=== PATIENT | male | born 1965 | race Caucasian/White ===

== ENCOUNTER 2017-01-09 19:42 | Emergency (ER) | payer SELFPAY ==
[~2017-01-09] VITALS: Ht 172.7 cm; Wt 79.4 kg
[~2017-01-09 19:42] MED LIST: BPR100T PO; FAMO20TA13 PO; GEMF600T3 PO; HYDR-3720 PO; HYDR-757 PO; IBP800T PO; NAPR-243 PO; PNT40TEC PO; RIVA15TA PO; RIVA20TA2 PO; RNT150T; SULF-222 PO; TRM50T PO
[2017-01-09] MEDS ORDERED: Prilosec (20:13)
[2017-01-09] MEDS ORDERED: DICL50TA6 PO (20:15)
--- NOTE | 2017-01-09 20:16 | ED Lower Extremity ---
General Chief Complaint: Lower Extremity Stated Complaint: LT FOOT PAIN/SWELLING Nursing Triage Note: Pt reports spontaneous left foot pain after a pop sensation 1 week ago. Pain to bear weight on foot Nursing Sepsis Screen: No Definite Risk Source: patient Exam Limitations: no limitations History of Present Illness Time seen by provider: 20:12 Initial Comments To ER with pain just in front of the left heel for one week after a popping sensation in this area. Since then he's had pain with weightbearing that seems to be worse first thing in the morning and improves throughout the day. Onset: just prior to arrival Severity: moderate Pain/Injury Location: left foot Method of Injury: unknown Modifying Factors: Worse With Movement Allergies and Home Medications Allergies Coded Allergies: Penicillins (Unverified Allergy, Intermediate, hives, 09/18/12) Home Medications Hydrocodone Bit/Acetaminophen 1 Each Tablet, 1 EA PO Q6H PRN for MILD PAIN, #20 Prescribed by: MIROSLAVA GEORGE on 12/21/13 1321 Pantoprazole Sodium 40 Mg Tablet.dr, 1 TAB PO DAILY, #30 (Reported) Rivaroxaban 15 Mg Tablet, 15 MG PO BID, #28 Prescribed by: MIROSLAVA GEORGE on 12/21/13 1317 Rivaroxaban 20 Mg Tablet, 20 MG PO DAILY, #30 Prescribed by: MIROSLAVA GEORGE on 12/21/13 1317 Constitutional: see HPI, No chills, No fever EENTM: see HPI Respiratory: no symptoms reported Cardiovascular: no symptoms reported Genitourinary: no symptoms reported Musculoskeletal: see HPI Skin: no symptoms reported Psychiatric/Neurological: No Symptoms Reported Past Txotghu-Fxqujg-Gaxbwx Hx Patient Social History Alcohol Use: Occasionally Uses Recreational Drug Use: No (Hx THC) Smoking Status: Current Everyday Smoker Type Used: Cigarettes 2nd Hand Smoke Exposure: Yes Recent Foreign Travel: No Contact w/Someone Who Travel: No Recent Infectious Disease Expo: No Recent Hopitalizations: No Immunizations Up To Date Tetanus Booster (TDap): More than 5yrs Seasonal Allergies Seasonal Allergies: No Surgeries HX Surgeries: Yes Respiratory Hx Respiratory Disorders: No Cardiovascular Hx Cardiac Disorders: Yes Neurological Hx Neurological Disorders: No Genitourinary Hx Genitourinary Disorders: No Gastrointestinal Hx Gastrointestinal Disorders: Yes Gastrointestinal Disorders: Gastroesophageal Reflux Musculoskeletal Hx Musculoskeletal Disorders: No Endocrine Hx Endocrine Disorders: No HEENT HX ENT Disorders: No Cancer Hx Cancer: No Psychosocial Hx Psychiatric Problems: No Integumentary HX Skin/Integumentary Disorder: No Blood Transfusions Hx Blood Disorders: No Family Medical History Significant Family History: No Pertinent Family Hx Physical Exam Vital Signs Vital Sign - Last 12Hours 01/09/17 20:02 Temp 97.2 Pulse 91 Resp 20 B/P (MAP) 131/100 Pulse Ox 97 O2 Delivery Room Air Capillary Refill : Less Than 3 Seconds General Appearance: WD/WN, no apparent distress HEENT: PERRL/EOMI, normal ENT inspection Neck: non-tender, full range of motion Respiratory: no respiratory distress, no accessory muscle use Gastrointestinal: non tender, soft Hips: bilateral hip non-tender, bilateral hip normal inspection, bilateral hip normal range of motion Legs: bilateral leg non-tender, bilateral leg normal inspection, bilateral leg normal range of motion Knees: bilateral knee non-tender, bilateral knee normal inspection, bilateral knee normal range of motion Ankles: bilateral ankle non-tender, bilateral ankle normal inspection, bilateral ankle normal range of motion Feet: left foot pain, left foot soft tissue tenderness, left foot swelling, left foot other (tender to palpation to plantar fascia. no erythema or. ) Neurologic/Psychiatric: alert, normal mood/affect, oriented x 3 Skin: normal color, warm/dry Progress/Results/Core Measures Results/Orders My Orders Orders - MIROSLAVA GEORGE APRN Foot, Left, 3 Views (01/09/17 20:11) Vital Signs/I&O Vital Sign - Last 12Hours 01/09/17 20:02 Temp 97.2 Pulse 91 Resp 20 B/P (MAP) 131/100 Pulse Ox 97 O2 Delivery Room Air Blood Pressure Mean: 110 Departure Impression Impression: Primary Impression: Plantar fasciitis Disposition: 01 HOME, SELF-CARE Condition: Stable Departure-Patient Inst. Decision time for Depature: 20:14 Referrals: [facility] (PCP) Primary Care Physician KARY SHEPHERD (Family) Primary Care Physician Patient Instructions: Heel Pain (Caused by Plantar Fasciitis) (DC), Plantar Fasciitis Exercises Add. Discharge Instructions: 1. Return to ER for any concerns 2. Follow up with your doctor next week 3. pain meds as directed 4. Get heel inserts for the shoes. Follow the exercises as directed All discharge instructions reviewed with patient and/or family. Voiced understanding. Scripts Diclofenac Sodium (Diclofenac Sodium) 50 Mg Tablet. 50 MG PO TID Y for PAIN-MODERATE, #20 TAB Prov: MIROSLAVA GEORGE APRN 01/09/17 MIROSLAVA GEORGE APRN Jan 09, 2017 20:15
[2017-01-09 20:51] VITALS: BP 127/99
--- NOTE | 2017-01-09 21:08 | Diagnostic Imaging Report ---
INDICATION: Foot pain. EXAMINATION: Left foot at 8:30 p.m. Three views were obtained. COMPARISON: There are no prior studies available for comparison. FINDINGS: There is no fracture, dislocation or acute bony abnormality evident. There is an irregular bony excrescence along the anterior aspect of the talar neck. I suspect that this is a sequela of prior trauma. 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 A mild hallux valgus deformity of the first ray is noted as well. The soft tissues are unremarkable. IMPRESSION: There is no evidence for an acute bony abnormality. Dictated by: Dictated on workstation # [id number]
== END 2017-01-09 20:51 | disposition home or self-care (01) ==
LOC: EDUNIT# 19:42 → ER 19:44
DX: M72.2 Plantar fascial fibromatosis (principal); F17.210 Nicotine dependence, cigarettes, uncomplicated; Z79.01 Long term (current) use of anticoagulants
CPT/HCPCS: 73630; 99283

== ENCOUNTER 2017-01-16 00:30 | Inpatient (IN) | payer SELFPAY ==
[~2017-01-16] VITALS: Ht 172.7 cm; Wt 78.2 kg
[2017-01-16] VITALS (11 sets, daily range): BP systolic 104–134; BP diastolic 61–82
[~2017-01-16 00:30] MED LIST changes: +DICL50TA6 PO; +Prilosec
--- OUTSIDE RECORDS SUMMARY | 2017-01-16 00:41 | XMS REPORT | Continuity of Care Document ---
Author Author [facility] Organization [facility] Address Unknown Phone Unavailable Allergies Active Description Code Type Severity Reaction Onset Reported/Identified Relationship to Patient Clinical Status Yes Penicillins [id number] Drug Allergy Moderate hives 03/30/2010 Medications Problems Date Dx Coded Attending Type Code Diagnosis Diagnosed By 12/29/2008 836.1 TEAR OF LATERAL CARTILAGE OR MENISCUS OF KNEE CURRENT 12/29/2008 844.2 SPRAIN OF CRUCIATE LIGAMENT OF KNEE 12/29/2008 836.1 TEAR OF LATERAL CARTILAGE OR MENISCUS OF KNEE CURRENT 12/29/2008 844.2 SPRAIN OF CRUCIATE LIGAMENT OF KNEE 12/29/2008 836.1 TEAR OF LATERAL CARTILAGE OR MENISCUS OF KNEE CURRENT 12/29/2008 844.2 SPRAIN OF CRUCIATE LIGAMENT OF KNEE 12/29/2008 VIMAL FRANCO DO 836.1 TEAR OF LATERAL CARTILAGE OR MENISCUS OF KNEE CURRENT 12/29/2008 VIMAL FRANCO DO 844.2 SPRAIN OF CRUCIATE LIGAMENT OF KNEE 12/29/2008 RAYNE PHD, FRANCES Frey 836.1 TEAR OF LATERAL CARTILAGE OR MENISCUS OF KNEE CURRENT 12/29/2008 RAYNE PHD, FRANCES Frey 844.2 SPRAIN OF CRUCIATE LIGAMENT OF KNEE 12/29/2008 JANET VIVEROS DDS 836.1 TEAR OF LATERAL CARTILAGE OR MENISCUS OF KNEE CURRENT 12/29/2008 JANET VIVEROS DDS 844.2 SPRAIN OF CRUCIATE LIGAMENT OF KNEE 12/29/2008 MADL CALCULATING MACHINE MECHANIC, KARY L 836.1 TEAR OF LATERAL CARTILAGE OR MENISCUS OF KNEE CURRENT 12/29/2008 MADL CALCULATING MACHINE MECHANIC, KARY L 844.2 SPRAIN OF CRUCIATE LIGAMENT OF KNEE 12/29/2008 MADL CALCULATING MACHINE MECHANIC, KARY L 836.1 TEAR OF LATERAL CARTILAGE OR MENISCUS OF KNEE CURRENT 12/29/2008 MADL CALCULATING MACHINE MECHANIC, KARY L 844.2 SPRAIN OF CRUCIATE LIGAMENT OF KNEE 12/29/2008 MADL CALCULATING MACHINE MECHANIC, KARY L 836.1 TEAR OF LATERAL CARTILAGE OR MENISCUS OF KNEE CURRENT 12/29/2008 MADL CALCULATING MACHINE MECHANIC, KARY L 844.2 SPRAIN OF CRUCIATE LIGAMENT OF KNEE 01/28/2009 836.0 TEAR OF MEDIAL CARTILAGE OR MENISCUS OF KNEE CURRENT 01/28/2009 836.0 TEAR OF MEDIAL CARTILAGE OR MENISCUS OF KNEE CURRENT 01/28/2009 836.0 TEAR OF MEDIAL CARTILAGE OR MENISCUS OF KNEE CURRENT 01/28/2009 VIMAL FRANCO DO K 836.0 TEAR OF MEDIAL CARTILAGE OR MENISCUS OF KNEE CURRENT 01/28/2009 RAYNE MADERA, FRANCES Frey 836.0 TEAR OF MEDIAL CARTILAGE OR MENISCUS OF KNEE CURRENT 01/28/2009 JANET VIVEROS DDS 836.0 TEAR OF MEDIAL CARTILAGE OR MENISCUS OF KNEE CURRENT 01/28/2009 MADL CALCULATING MACHINE MECHANIC, KARY L 836.0 TEAR OF MEDIAL CARTILAGE OR MENISCUS OF KNEE CURRENT 01/28/2009 MADL CALCULATING MACHINE MECHANIC, KARY L 836.0 TEAR OF MEDIAL CARTILAGE OR MENISCUS OF KNEE CURRENT 01/28/2009 MADL CALCULATING MACHINE MECHANIC, KARY L 836.0 TEAR OF MEDIAL CARTILAGE OR MENISCUS OF KNEE CURRENT 03/18/2012 300.00 ANXIETY UNSPEC 03/18/2012 525.9 TOOTH PAIN 03/18/2012 300.00 ANXIETY UNSPEC 03/18/2012 525.9 TOOTH PAIN 03/18/2012 300.00 ANXIETY UNSPEC 03/18/2012 525.9 TOOTH PAIN 03/18/2012 VIMAL FRANCO DO K 300.00 ANXIETY UNSPEC 03/18/2012 VIMAL FRANCO DO K 525.9 TOOTH PAIN 03/18/2012 RAYNE MADERA, FRANCES Frey 300.00 ANXIETY UNSPEC 03/18/2012 RAYNE MADERA, FRANCES Frey 525.9 TOOTH PAIN 03/18/2012 JANET VIVEROS DDS 300.00 ANXIETY UNSPEC 03/18/2012 JANET VIVEROS DDS 525.9 TOOTH PAIN 03/18/2012 MADL CALCULATING MACHINE MECHANIC, KARY L 300.00 ANXIETY UNSPEC 03/18/2012 MADL CALCULATING MACHINE MECHANIC, KARY L 525.9 TOOTH PAIN 03/18/2012 MADL CALCULATING MACHINE MECHANIC, KARY L 300.00 ANXIETY UNSPEC 03/18/2012 MADL CALCULATING MACHINE MECHANIC, KARY L 525.9 TOOTH PAIN 03/18/2012 MADL CALCULATING MACHINE MECHANIC, KARY L 300.00 ANXIETY UNSPEC 03/18/2012 KARY SHEPHERD APRN L 525.9 TOOTH PAIN 03/31/2012 304.80 SA POLYSUB DEP 03/31/2012 311 MO DEPRESS NOS 03/31/2012 304.80 SA POLYSUB DEP 03/31/2012 311 MO DEPRESS NOS 03/31/2012 304.80 SA POLYSUB DEP 03/31/2012 311 MO DEPRESS NOS 03/31/2012 FRANCO DOVIMAL K 304.80 SA POLYSUB DEP 03/31/2012 FRANCO DO, VIMAL K 311 MO DEPRESS NOS 03/31/2012 RAYNE MADERA, FRANCES Frey 304.80 SA POLYSUB DEP 03/31/2012 RAYNE MADERA, FRANCES Frey 311 MO DEPRESS NOS 03/31/2012 JACKELINE GASCA, JANET Leonard 304.80 SA POLYSUB DEP 03/31/2012 JACKELINE GASCA, JANET Leonard 311 MO DEPRESS NOS 03/31/2012 KOBE SHEPHERD APRNA L 304.80 SA POLYSUB DEP 03/31/2012 CORA DELEON, KARY L 311 MO DEPRESS NOS 03/31/2012 CORA DELEON, KARY L 304.80 SA POLYSUB DEP 03/31/2012 CORA DELEON, KARY L 311 MO DEPRESS NOS 03/31/2012 CORA DELEON, KARY L 304.80 SA POLYSUB DEP 03/31/2012 CORA DELEON, KARY L 311 MO DEPRESS NOS 02/18/2013 ZANDRA CUNNINGHAM MD Ot 724.5 BACKACHE NOS 02/18/2013 ZANDRA CUNNINGHAM MD Ot 882.1 OPN WOUND HAND-COMPLICAT 02/18/2013 ZANDRA CUNNINGHAM MD Ot E000.8 OTHER EXTERNAL CAUSE STATUS 02/18/2013 ZANDRA CUNNINGHAM MD Ot E849.0 ACCIDENT IN HOME 02/18/2013 ZANDRA CUNNINGHAM MD Ot E920.8 ACC-CUTTING INSTRUM NEC 02/18/2013 ZANDRA CUNNINGHAM MD Ot V06.1 [id number], COMBINED [ 03/17/2013 464.00 ACUTE LARYNGITIS WITHOUT OBSTRUCTION 03/17/2013 786.2 COUGH 03/17/2013 787.01 NAUSEA WITH VOMITING 03/17/2013 FRANCO DO, VIMAL K 464.00 ACUTE LARYNGITIS WITHOUT OBSTRUCTION 03/17/2013 FRANCO DO, VIMAL K 786.2 COUGH 03/17/2013 FRANCO DO, VIMAL K 787.01 NAUSEA WITH VOMITING 03/17/2013 RAYNE MADERA, FRANCES Frey 464.00 ACUTE LARYNGITIS WITHOUT OBSTRUCTION 03/17/2013 RAYNE MADERA, FRANCES Frey 786.2 COUGH 03/17/2013 RAYNE MADERA, FRANCES Frey 787.01 NAUSEA WITH VOMITING 03/17/2013 JACKELINE DDS, JANET Leonard 464.00 ACUTE LARYNGITIS WITHOUT OBSTRUCTION 03/17/2013 JACKELINE DDS, JANET Leonard 786.2 COUGH 03/17/2013 JACKELINE DDS, JANET Leonard 787.01 NAUSEA WITH VOMITING 03/17/2013 MADL CALCULATING MACHINE MECHANIC, KARY L 464.00 ACUTE LARYNGITIS WITHOUT OBSTRUCTION 03/17/2013 MADL CALCULATING MACHINE MECHANIC, KARY L 786.2 COUGH 03/17/2013 MADL CALCULATING MACHINE MECHANIC, KARY L 787.01 NAUSEA WITH VOMITING 03/17/2013 MADL CALCULATING MACHINE MECHANIC, KARY L 464.00 ACUTE LARYNGITIS WITHOUT OBSTRUCTION 03/17/2013 MADL CALCULATING MACHINE MECHANIC, KARY L 786.2 COUGH 03/17/2013 MADL CALCULATING MACHINE MECHANIC, KARY L 787.01 NAUSEA WITH VOMITING 03/17/2013 MADL CALCULATING MACHINE MECHANIC, KARY L 464.00 ACUTE LARYNGITIS WITHOUT OBSTRUCTION 03/17/2013 MADL CALCULATING MACHINE MECHANIC, KARY L 786.2 COUGH 03/17/2013 MADL CALCULATING MACHINE MECHANIC, KARY L 787.01 NAUSEA WITH VOMITING 03/31/2013 300.23 AN SOCIAL PHOBIA 03/31/2013 FRANCO DO, VIMAL K 300.23 AN SOCIAL PHOBIA 03/31/2013 FRANCES MCLAIN PHD 300.23 AN SOCIAL PHOBIA 03/31/2013 JACKELINE GASCA, JANET Leonard 300.23 AN SOCIAL PHOBIA 03/31/2013 MADL CALCULATING MACHINE MECHANIC, KARY L 300.23 AN SOCIAL PHOBIA 03/31/2013 MADL CALCULATING MACHINE MECHANIC, KARY L 300.23 AN SOCIAL PHOBIA 03/31/2013 MADL CALCULATING MACHINE MECHANIC, KARY L 300.23 AN SOCIAL PHOBIA 04/28/2013 FRANCO DO, VIMAL K 719.46 PAIN- KNEE 04/28/2013 FRANCO DO, VIMAL K 723.1 CERVICALGIA 04/28/2013 FRANCO DO, VIMAL K 786.05 SHORTNESS OF BREATH 04/28/2013 FRANCO DO, VIMAL K 796.2 ELEVATED BLOOD PRESSURE READING WITHOUT DIAGNOSIS OF HYPERTENSION 04/28/2013 RAYNE PHD, FRANCES Frey 719.46 PAIN- KNEE 04/28/2013 RAYNE PHD, FRANCES Frey 723.1 CERVICALGIA 04/28/2013 RAYNE PHD, FRANCES Frey 786.05 SHORTNESS OF BREATH 04/28/2013 RAYNE PHD, FRANCES Frey 796.2 ELEVATED BLOOD PRESSURE READING WITHOUT DIAGNOSIS OF HYPERTENSION 04/28/2013 JACKELINE DDS, JANET Leonard 719.46 PAIN- KNEE 04/28/2013 JACKELINE DDS, JANET Leonard 723.1 CERVICALGIA 04/28/2013 JACKELINE DDS, JANET Leonard 786.05 SHORTNESS OF BREATH 04/28/2013 JACKELINE DDS, JANET M 796.2 ELEVATED BLOOD PRESSURE READING WITHOUT DIAGNOSIS OF HYPERTENSION 04/28/2013 MADL CALCULATING MACHINE MECHANIC, KARY L 719.46 PAIN- KNEE 04/28/2013 MADL CALCULATING MACHINE MECHANIC, KARY L 723.1 CERVICALGIA 04/28/2013 MADL CALCULATING MACHINE MECHANIC, KARY L 786.05 SHORTNESS OF BREATH 04/28/2013 MADL CALCULATING MACHINE MECHANIC, KARY L 796.2 ELEVATED BLOOD PRESSURE READING WITHOUT DIAGNOSIS OF HYPERTENSION 04/28/2013 MADL CALCULATING MACHINE MECHANIC, KARY L 719.46 PAIN- KNEE 04/28/2013 MADL CALCULATING MACHINE MECHANIC, KARY L 723.1 CERVICALGIA 04/28/2013 MADL CALCULATING MACHINE MECHANIC, KARY L 786.05 SHORTNESS OF BREATH 04/28/2013 MADL CALCULATING MACHINE MECHANIC, KARY L 796.2 ELEVATED BLOOD PRESSURE READING WITHOUT DIAGNOSIS OF HYPERTENSION 04/28/2013 MADL CALCULATING MACHINE MECHANIC, KARY L 719.46 PAIN- KNEE 04/28/2013 MADL CALCULATING MACHINE MECHANIC, KARY L 723.1 CERVICALGIA 04/28/2013 MADL CALCULATING MACHINE MECHANIC, KARY L 786.05 SHORTNESS OF BREATH 04/28/2013 MADL CALCULATING MACHINE MECHANIC, KARY L 796.2 ELEVATED BLOOD PRESSURE READING WITHOUT DIAGNOSIS OF HYPERTENSION 12/21/2013 MIROSLAVA GEORGE APRN Ot 453.82 ACUTE VENOUS EMBOLISM AND THROMBOSIS OF 12/21/2013 MIROSLAVA GEORGE APRN Ot 729.81 SWELLING OF LIMB 12/29/2013 KOBE SHEPHERD APRNA L 719.41 PAIN IN JOINT INVOLVING SHOULDER REGION 12/29/2013 KOBE SHEPHERD APRNA L V12.51 PERSONAL HISTORY OF VENOUS THROMBOSIS AND EMBOLISM 12/29/2013 KOBE SHEPHERD APRNA L 719.41 PAIN IN JOINT INVOLVING SHOULDER REGION 12/29/2013 KOBE SHEPHERD APRNA L V12.51 PERSONAL HISTORY OF VENOUS THROMBOSIS AND EMBOLISM 12/29/2013 KOBE SHEPHERD APRNA L 719.41 PAIN IN JOINT INVOLVING SHOULDER REGION 12/29/2013 KOBE SHEPHERD APRNA L V12.51 PERSONAL HISTORY OF VENOUS THROMBOSIS AND EMBOLISM 01/11/2017 MIROSLAVA GEORGE APRN Ot F17.210 NICOTINE DEPENDENCE, CIGARETTES, UNCOMPL 01/11/2017 MIROSLAVA GEORGE APRN Ot M72.2 PLANTAR FASCIAL FIBROMATOSIS 01/11/2017 MIROSLAVA GEORGE APRN Ot M79.672 PAIN IN LEFT FOOT 01/11/2017 MIROSLAVA GEORGE APRN Ot Z79.01 CUSTODIAL (CURRENT) USE OF ANTICOAGULANT Procedures Code [place] [address] PSYCH DIAGNOSTIC EVALUATION 04/01/2013 43912 OXIMETRY 2012 26080 ROUTINE VENIPUNCTURE 04/28/2013 22489 LIPID PANEL 04/28 20409 XRAY CHEST 2 VIEW 04/29/2013 46173 XRAY CERVICAL SPINE, 2 OR 3 VIEWS 04/29/2013 45537 OXIMETRY 2012 28614 PSYTX PT&/FAMILY 45 MINUTES 05/15/2013 10851 ROUTINE VENIPUNCTURE 12/29/2013 11271 XRAY SHOULDER LEFT COMP 2 VIEWS 12/29/2013 11567 URINE DRUG SCREEN (IN-HOUSE) 12/29/2013 80622 CBC 12/29/2013 [id number] GFR CALC (RESULT ONLY) 12/29/2013 67849 CMP 12/29/2013 PHYSICAL PHYSICAL THERAPY, VIA [facility] 01/25/2014 Results Encounters ACCT No. Visit Date/Time Discharge Status Pt. Type Provider Facility Loc./Unit Complaint [id number] 01/09/2017 19:44:00 2016 20:51:00 DIS Outpatient MIROSLAVA GEORGE APRN [facility] ER LT FOOT PAIN/SWELLING [id number] 12/21/2013 10:41:00 2013 13:40:00 DIS Emergency MIROSLAVA GEORGE APRN [facility] ER FALL RIGHT ARM PAIN/SWELLING [id number] 02/18/2013 17:07:00 2012 18:57:00 DIS Emergency OCTAVIO DEL TORO, ZANDRA Lima [facility] ER BACK PAIN,HAND WOUND
[2017-01-16] MEDS ORDERED: LACTATED RINGERS 1,000 ML IV ONE (00:56)
[2017-01-16] MEDS ORDERED: ACTIVATED CHARCOAL/SORBITOL 50 G/240 ML BTL PO ONE (01:00)
[2017-01-16 01:03] LABS: BILIRUBIN,URINE NEGATIVE (NEGATIVE); KETONES,URINE NEGATIVE (NEGATIVE); LEUKOCYTE ESTERASE ,URINE NEGATIVE (NEGATIVE); NITRITE,URINE NEGATIVE (NEGATIVE); PH,URINE 6.5 (5-9); PROTEIN,URINE NEGATIVE (NEGATIVE); UROBILINOGEN,URINE NORMAL (NORMAL)
[2017-01-16 01:03] LABS: BASOPHILS # (AUTO) 0.1 10^3/uL (0.0-0.1); BASOPHILS % (AUTO) 1 % (0-10); EOSINOPHILS # (AUTO) 0.2 10^3/uL (0.0-0.3); EOSINOPHILS % (AUTO) 2 % (0-10); LYMPHOCYTES # (AUTO) 2.2 X 10^3 (1.0-4.0); LYMPHOCYTES % (AUTO) 20 % (12-44); MEAN CORPUSCULAR HEMOGLOBIN 32 PG (25-34); MEAN CORPUSCULAR HGB CONC 35 G/DL (32-36); MEAN CORPUSCULAR VOLUME 91 FL (80-99); MEAN PLATELET VOLUME 10.8 FL (7.4-10.4); MONOCYTES # (AUTO) 0.8 X 10^3 (0.0-1.0); MONOCYTES % (AUTO) 8 % (0-12); NEUTROPHILS # (AUTO) 7.6 X 10^3 (1.8-7.8); NEUTROPHILS % (AUTO) 70 % (42-75); PLATELET COUNT 205 10^3/uL (130-400); RED BLOOD COUNT 4.75 10^6/uL (4.35-5.85); RED CELL DISTRIBUTION WIDTH 12.8 % (10.0-14.5); WHITE BLOOD COUNT 10.8 10^3/uL (4.3-11.0)
[2017-01-16 01:10] LABS: SQUAMOUS EPITHELIAL CELL,UR RARE /HPF
[2017-01-16 01:19] LABS: ALANINE AMINOTRANSFERASE 20 U/L (0-55); ALBUMIN 3.8 GM/DL (3.2-4.5); ALCOHOL 195 MG/DL (<10); ANION GAP 10 MMOL/L (5-14); ASPARTATE AMINO TRANSFERASE 16 U/L (5-34); BILIRUBIN,TOTAL 0.9 MG/DL (0.1-1.0); BLOOD UREA NITROGEN 11 MG/DL (7-18); BUN/CREATININE RATIO 13; CALCIUM 8.7 MG/DL (8.5-10.1); CARBON DIOXIDE 24 MMOL/L (21-32); CHLORIDE 105 MMOL/L (98-107); CREATININE SERUM 0.86 MG/DL (0.60-1.30); GFR ESTIMATED > 60; GLUCOSE 98 MG/DL (70-105); MAGNESIUM 2.2 MG/DL (1.8-2.4); POTASSIUM 3.4 MMOL/L (3.6-5.0); SALICYLATE < 5.0 MG/DL (5.0-20.0); SODIUM 139 MMOL/L (135-145); TOTAL PROTEIN 6.3 GM/DL (6.4-8.2)
[2017-01-16 01:21] LABS: ACETAMINOPHEN < 10 UG/ML (10-30)
[2017-01-16] MEDS ORDERED: ONDANSETRON 4 MG/2 ML (SDV) Z0FRAN ONE (01:27)
[2017-01-16] MEDS ORDERED: ONDANSETRON 4 MG/2 ML (SDV) Z0FRAN IVP ONE (01:30)
--- OUTSIDE RECORDS SUMMARY | 2017-01-16 01:57 | XMS REPORT | Continuity of Care Document ---
Author Author [facility] [address] Organization [facility] [address] Address Unknown Phone Unavailable Allergies Active Description Code Type Severity Reaction Onset Reported/Identified Relationship to Patient Clinical Status Yes Penicillins [id number] Drug Allergy Moderate hives 03/30/2010 Medications Problems [...] OF CRUCIATE LIGAMENT OF KNEE 12/29/2008 MADL PIECE DYEING MACHINE TENDER, KARY L 836.1 TEAR OF LATERAL CARTILAGE OR MENISCUS OF KNEE CURRENT 12/29/2008 MADL PIECE DYEING MACHINE TENDER, KARY L 844.2 SPRAIN OF CRUCIATE LIGAMENT OF KNEE 12/29/2008 MADL PIECE DYEING MACHINE TENDER, KARY L 836.1 TEAR OF LATERAL CARTILAGE OR MENISCUS OF KNEE CURRENT 12/29/2008 MADL PIECE DYEING MACHINE TENDER, KARY L 844.2 SPRAIN OF CRUCIATE LIGAMENT OF KNEE 12/29/2008 MADL PIECE DYEING MACHINE TENDER, KARY L 836.1 TEAR OF LATERAL CARTILAGE OR MENISCUS OF KNEE CURRENT 12/29/2008 MADL PIECE DYEING MACHINE TENDER, KARY L 844.2 SPRAIN OF CRUCIATE LIGAMENT [...] OR MENISCUS OF KNEE CURRENT 01/28/2009 MADL PIECE DYEING MACHINE TENDER, KARY L 836.0 TEAR OF MEDIAL CARTILAGE OR MENISCUS OF KNEE CURRENT 01/28/2009 MADL PIECE DYEING MACHINE TENDER, KARY L 836.0 TEAR OF MEDIAL CARTILAGE OR MENISCUS OF KNEE CURRENT 01/28/2009 MADL PIECE DYEING MACHINE TENDER, KARY L 836.0 TEAR OF MEDIAL CARTILAGE [...] VIVEROS DDS 525.9 TOOTH PAIN 03/18/2012 MADL PIECE DYEING MACHINE TENDER, KARY L 300.00 ANXIETY UNSPEC 03/18/2012 MADL PIECE DYEING MACHINE TENDER, KARY L 525.9 TOOTH PAIN 03/18/2012 MADL PIECE DYEING MACHINE TENDER, KARY L 300.00 ANXIETY UNSPEC 03/18/2012 MADL PIECE DYEING MACHINE TENDER, KARY L 525.9 TOOTH PAIN 03/18/2012 MADL PIECE DYEING MACHINE TENDER, KARY L 300.00 ANXIETY UNSPEC 03/18/2012 KARY [...] MD Ot E920.8 ACC-CUTTING INSTRUM NEC 02/18/2013 ZADNRA CUNNINGHAM MD Ot V06.1 [id number], COMBINED [ 03/17/2013 464.00 ACUTE LARYNGITIS WITHOUT [...] Leonard 787.01 NAUSEA WITH VOMITING 03/17/2013 MADL PIECE DYEING MACHINE TENDER, KARY L 464.00 ACUTE LARYNGITIS WITHOUT OBSTRUCTION 03/17/2013 MADL PIECE DYEING MACHINE TENDER, KARY L 786.2 COUGH 03/17/2013 MADL PIECE DYEING MACHINE TENDER, KARY L 787.01 NAUSEA WITH VOMITING 03/17/2013 MADL PIECE DYEING MACHINE TENDER, KARY L 464.00 ACUTE LARYNGITIS WITHOUT OBSTRUCTION 03/17/2013 MADL PIECE DYEING MACHINE TENDER, KARY L 786.2 COUGH 03/17/2013 MADL PIECE DYEING MACHINE TENDER, KARY L 787.01 NAUSEA WITH VOMITING 03/17/2013 MADL PIECE DYEING MACHINE TENDER, KARY L 464.00 ACUTE LARYNGITIS WITHOUT OBSTRUCTION 03/17/2013 MADL PIECE DYEING MACHINE TENDER, KARY L 786.2 COUGH 03/17/2013 MADL PIECE DYEING MACHINE TENDER, KARY L 787.01 NAUSEA WITH VOMITING 03/31/2013 300.23 AN SOCIAL PHOBIA 03/31/2013 FRANCO DO, VIMAL K 300.23 AN SOCIAL PHOBIA 03/31/2013 FRANCES MCLAIN PHD 300.23 AN SOCIAL PHOBIA 03/31/2013 JACKELINE GASCA, JANET Leonard 300.23 AN SOCIAL PHOBIA 03/31/2013 MADL PIECE DYEING MACHINE TENDER, KARY L 300.23 AN SOCIAL PHOBIA 03/31/2013 MADL PIECE DYEING MACHINE TENDER, KARY L 300.23 AN SOCIAL PHOBIA 03/31/2013 MADL PIECE DYEING MACHINE TENDER, KARY L 300.23 AN SOCIAL PHOBIA 04/28/2013 [...] READING WITHOUT DIAGNOSIS OF HYPERTENSION 04/28/2013 MADL PIECE DYEING MACHINE TENDER, KARY L 719.46 PAIN- KNEE 04/28/2013 MADL PIECE DYEING MACHINE TENDER, KARY L 723.1 CERVICALGIA 04/28/2013 MADL PIECE DYEING MACHINE TENDER, KARY L 786.05 SHORTNESS OF BREATH 04/28/2013 MADL PIECE DYEING MACHINE TENDER, KARY L 796.2 ELEVATED BLOOD PRESSURE READING WITHOUT DIAGNOSIS OF HYPERTENSION 04/28/2013 MADL PIECE DYEING MACHINE TENDER, KARY L 719.46 PAIN- KNEE 04/28/2013 MADL PIECE DYEING MACHINE TENDER, KARY L 723.1 CERVICALGIA 04/28/2013 MADL PIECE DYEING MACHINE TENDER, KARY L 786.05 SHORTNESS OF BREATH 04/28/2013 MADL PIECE DYEING MACHINE TENDER, KARY L 796.2 ELEVATED BLOOD PRESSURE READING WITHOUT DIAGNOSIS OF HYPERTENSION 04/28/2013 MADL PIECE DYEING MACHINE TENDER, KARY L 719.46 PAIN- KNEE 04/28/2013 MADL PIECE DYEING MACHINE TENDER, KARY L 723.1 CERVICALGIA 04/28/2013 MADL PIECE DYEING MACHINE TENDER, KARY L 786.05 SHORTNESS OF BREATH 04/28/2013 MADL PIECE DYEING MACHINE TENDER, KARY L 796.2 ELEVATED BLOOD PRESSURE READING [...] FOOT 01/11/2017 MIROSLAVA GEORGE APRN Ot Z79.01 FDC (CURRENT) USE OF ANTICOAGULANT Procedures Code Description [place] [address] PSYCH DIAGNOSTIC EVALUATION 04/01/2013 68567 OXIMETRY 2012 09088 ROUTINE VENIPUNCTURE 04/28/2013 48734 LIPID PANEL 04/28 72479 XRAY CHEST 2 VIEW 04/29/2013 77309 XRAY CERVICAL SPINE, 2 OR 3 VIEWS 04/29/2013 43168 OXIMETRY 2012 44459 PSYTX PT&/FAMILY 45 MINUTES 05/15/2013 10396 ROUTINE VENIPUNCTURE 12/29/2013 14138 XRAY SHOULDER LEFT COMP 2 VIEWS 12/29/2013 36016 URINE DRUG SCREEN (IN-HOUSE) 12/29/2013 90987 CBC 12/29/2013 [id number] GFR CALC (RESULT ONLY) 12/29/2013 34523 CMP 12/29/2013 PHYSICAL PHYSICAL THERAPY, VIA [facility] 01/25/2014 Results Encounters ACCT No. Visit Date/Time Discharge Status Pt. Type Provider Facility Loc./Unit Complaint [id number] 01/09/2017 19:44:00 2016 20:51:00 DIS Outpatient MIROSLAVA GEORGE APRN [facility] [address] ER LT FOOT PAIN/SWELLING [id number] 12/21/2013 10:41:00 2013 13:40:00 DIS Emergency MIROSLAVA GEORGE APRN [facility] [address] ER FALL RIGHT ARM PAIN/SWELLING [id number] 02/18/2013 17:07:00 2012 18:57:00 DIS Emergency OCTAVIO DEL TORO, ZANDRA Lima [facility] [address] ER BACK PAIN,HAND WOUND
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
[2017-01-16] MEDS ORDERED: LORazepam INJ 2 MG/ML (ATIVAN) VIAL IVP ONE (02:30)
[2017-01-16] MEDS: LORazepam INJ 2 MG/ML (ATIVAN) VIAL IVP PRN ×2 (03:40→04:43)
[2017-01-16] MEDS ORDERED: NICOTINE 21 MG (NICODERM) PATCH TD ONE (04:15)
[2017-01-16] MEDS ORDERED: CATHETER FLUSH 10 ML SYR IV PRN (04:30)
[2017-01-16 05:10] LABS: BASOPHILS # (AUTO) 0.1 10^3/uL (0.0-0.1); BASOPHILS % (AUTO) 1 % (0-10); EOSINOPHILS # (AUTO) 0.2 10^3/uL (0.0-0.3); EOSINOPHILS % (AUTO) 2 % (0-10); LYMPHOCYTES # (AUTO) 2.1 X 10^3 (1.0-4.0); LYMPHOCYTES % (AUTO) 25 % (12-44); MEAN CORPUSCULAR HEMOGLOBIN 31 PG (25-34); MEAN CORPUSCULAR HGB CONC 35 G/DL (32-36); MEAN CORPUSCULAR VOLUME 90 FL (80-99); MEAN PLATELET VOLUME 11.2 FL (7.4-10.4); MONOCYTES # (AUTO) 0.6 X 10^3 (0.0-1.0); MONOCYTES % (AUTO) 7 % (0-12); NEUTROPHILS # (AUTO) 5.6 X 10^3 (1.8-7.8); NEUTROPHILS % (AUTO) 66 % (42-75); PLATELET COUNT 213 10^3/uL (130-400); RED BLOOD COUNT 5.03 10^6/uL (4.35-5.85); RED CELL DISTRIBUTION WIDTH 12.9 % (10.0-14.5); WHITE BLOOD COUNT 8.4 10^3/uL (4.3-11.0)
[2017-01-16 05:40] LABS: ALANINE AMINOTRANSFERASE 22 U/L (0-55); ALBUMIN 3.9 GM/DL (3.2-4.5); ANION GAP 13 MMOL/L (5-14); ASPARTATE AMINO TRANSFERASE 20 U/L (5-34); BILIRUBIN,TOTAL 0.9 MG/DL (0.1-1.0); BLOOD UREA NITROGEN 8 MG/DL (7-18); BUN/CREATININE RATIO 10; CARBON DIOXIDE 20 MMOL/L (21-32); CHLORIDE 112 MMOL/L (98-107); CREATININE SERUM 0.82 MG/DL (0.60-1.30); GFR ESTIMATED > 60; GLUCOSE 104 MG/DL (70-105); MAGNESIUM 2.3 MG/DL (1.8-2.4); PHOSPHORUS 2.7 MG/DL (2.3-4.7); POTASSIUM 3.5 MMOL/L (3.6-5.0); SODIUM 145 MMOL/L (135-145); TOTAL PROTEIN 6.6 GM/DL (6.4-8.2)
[2017-01-16] MEDS ORDERED: CATHETER FLUSH 10 ML SYR IV SCH (06:00)
[2017-01-16] MEDS ORDERED: OMEP20TA33 PO (09:13)
--- NOTE | 2017-01-16 12:21 | Short Stay Summary-Hospitalist ---
HPI History of Present Illness: HPI/Chief Complaint CC: Overdose HPI: This is a 51 yoWM that presented to ER after taking a bottle of pills with intention to kill himself. He also has alcohol intoxication and hx of meth and cocaine use. Pt was recently in snf. CBC and CMP normal, UDS negative, alcohol 195, UA negative. Patient Interview: Pt states that he is well. Does not want to talk to me. Pt was informed that we are working on DC Physical exam stable Plan: DC soon as long as ok with mental health Scribed by Julisa Roe under the direct supervision of Dr. Jim. Source: patient Exam Limitations: clinical condition (drowsy) Date Seen 01/16/17 Time Seen by Provider: 09:15 Attending Physician Giovanny Velásquez MD PCP [facility] [place] Referring Physician Date of Admission Jan 16, 2017 at 01:40 Home Medications & Allergies Home Medications Reviewed patient Home Medication Reconciliation Form Allergies Allergies Coded Allergies Penicillins (Unverified Allergy, Intermediate, hives, 09/18/12) codeine (Verified Allergy, Unknown, 01/16/17) PT STATES [facility]ULA SWELLS Past Ncgceyt-Eoshqe-Qcewhp Hx Patient Social History Marrital Status: single Employed/Student: unemployed Alcohol Use: Regular Use Recreational Drug Use: Yes (PT STATES PAST USE "QUIT YEARS AGO") Smoking Status: Current Everyday Smoker Type Used: Cigarettes 2nd Hand Smoke Exposure: Yes Physical Abuse Screen: No Sexual Abuse: No Recent Foreign Travel: No Contact w/other who traveled: No Recent Hopitalizations: No Recent Infectious Disease Expo: No Immunizations Up To Date Tetanus Booster (TDap): More than 5yrs Seasonal Allergies Seasonal Allergies: No Surgeries HX Surgeries: Yes (RIGHT KNEE) Surgeries: Orthopedic Respiratory Hx Respiratory Disorders: No Cardiovascular Hx Cardiovascular Disorders: Yes (DVT RIGHT ARM 12/2013) Cardiac Disorders: Deep Vein Thrombosis, High Cholesterol Neurological Hx Neurological Disorders: No Genitourinary Hx Genitourinary Disorders: No Gastrointestinal Hx Gastrointestinal Disorders: Yes Gastrointestinal Disorders: Gastroesophageal Reflux, Hepatitis Musculoskeletal Hx Musculoskeletal Disorders: Yes (RIGHT KNEE ) Musculoskeletal Disorders: Chronic Back Pain, Fractures Endocrine Hx Endocrine Disorders: No HEENT HX ENT Disorders: No Cancer Hx Cancer: No Psychosocial Hx Psychiatric Problems: Yes (POLYSUBSTANCE ABUSE, OVERDOSES) Behavioral Health Disorders: Suicide Attempts, Violent Behavior Integumentary HX Skin/Integumentary Disorder: No Blood Transfusions Hx Blood Disorders: No Review of Systems Date Seen by Provider: Jan 16, 2017 Time Seen by Provider: 09:15 ROS-Unable to Obtain: Drowsy from etoh intox last night Constitutional: see HPI Physical Exam Physical Exam Vital Signs Vital Sign - Last 12Hours 01/16/17 00:30 Temp 98.0 Pulse 62 Resp 16 B/P (MAP) 132/93 Pulse Ox 99 O2 Delivery Room Air Capillary Refill : Less Than 3 Seconds General Appearance: No Apparent Distress, WD/WN Eyes: Bilateral Eye Normal Inspection, Bilateral Eye PERRL HEENT: PERRL/EOMI, Normal ENT Inspection, Pharynx Normal Neck: Full Range of Motion, Normal Inspection, Non Tender, Supple, Carotid Bruit Respiratory: Chest Non Tender, Lungs Clear, Normal Breath Sounds, No Accessory Muscle Use, No Respiratory Distress Cardiovascular: Regular Rate, Rhythm, No Edema, No Gallop, No JVD, No Murmur, Normal Peripheral Pulses Gastrointestinal: Normal Bowel Sounds, No Organomegaly, No Pulsatile Mass, Non Tender, Soft Back: Normal Inspection, No CVA Tenderness, No Vertebral Tenderness Extremity: Normal Capillary Refill, Normal Inspection, Normal Range of Motion, Non Tender, No Calf Tenderness, No Pedal Edema Neurologic/Psychiatric: Alert, No Motor/Sensory Deficits, Normal Mood/Affect, Other (drowsy) Skin: Normal Color, Warm/Dry Lymphatic: No Adenopathy Results Results/Procedures Lab Laboratory Tests 01/16/17 00:36 01/16/17 04:10 Short Stay Diagnosis Discharge Diagnosis-Short Stay Admission Diagnosis Assessment: Alcohol intoxication Suicide attempt GERD hx Final Discharge Diagnosis Assessment: Alcohol intoxication Suicide attempt GERD hx Conclusion Plan Plan: Mental health screening been discharge home Clinical Quality Measures DVT/VTE Risk/Contraindication: Risk Factor Score Per Nursin RFS Level Per Nursing on Admit: 4+=Very High BABS JIM DO Jan 16, 2017 12:21
[2017-01-17 06:57] LABS: HCV INDEX >11.00 Index (0.00-0.79)
[2017-01-17] MEDS ORDERED: PANTOPRAZOLE 20 MG TABLET (PROTONIX) PO SCH (07:00)
== END 2017-01-16 14:20 | disposition home or self-care (01) | DRG 918 ==
LOC: EDUNIT# 00:36 → ER 00:37 → ICU 01:40
PROVIDERS: ADMIT Internal Medicine; ATTEND Internal Medicine
DX: T50.902A Poisoning by unspecified drugs, medicaments and biological substances, intentional self-harm, initial encounter (principal); F10.129 Alcohol abuse with intoxication, unspecified; K21.9 Gastro-esophageal reflux disease without esophagitis; F17.210 Nicotine dependence, cigarettes, uncomplicated
CPT/HCPCS: 36415; 80053; 80074; 80306; 80320; 80329; 81000; 83735; 84100; 84443; 85025; 87081; 93005; 93041; 96374; 96375

== ENCOUNTER 2017-03-22 03:24 | Emergency (ER) | payer SELFPAY ==
[~2017-03-22] VITALS: Ht 172.7 cm; Wt 81.6 kg
[~2017-03-22 03:24] MED LIST changes: +OMEP20TA33 PO
[2017-03-22] MEDS ORDERED: LACTATED RINGERS 1,000 ML IV ONE (03:37)
[2017-03-22 03:47] LABS: BASOPHILS # (AUTO) 0.1 10^3/uL (0.0-0.1); BASOPHILS % (AUTO) 1 % (0-10); EOSINOPHILS # (AUTO) 0.4 10^3/uL (0.0-0.3); EOSINOPHILS % (AUTO) 4 % (0-10); LYMPHOCYTES # (AUTO) 2.7 X 10^3 (1.0-4.0); LYMPHOCYTES % (AUTO) 28 % (12-44); MEAN CORPUSCULAR HEMOGLOBIN 32 PG (25-34); MEAN CORPUSCULAR HGB CONC 35 G/DL (32-36); MEAN CORPUSCULAR VOLUME 92 FL (80-99); MEAN PLATELET VOLUME 11.1 FL (7.4-10.4); MONOCYTES # (AUTO) 0.7 X 10^3 (0.0-1.0); MONOCYTES % (AUTO) 7 % (0-12); NEUTROPHILS # (AUTO) 5.9 X 10^3 (1.8-7.8); NEUTROPHILS % (AUTO) 60 % (42-75); PLATELET COUNT 238 10^3/uL (130-400); RED CELL DISTRIBUTION WIDTH 13.1 % (10.0-14.5); WHITE BLOOD COUNT 9.7 10^3/uL (4.3-11.0)
[2017-03-22 03:50] LABS: INR 0.9 (0.8-1.4); PROTHROMBIN TIME PATIENT 11.8 SEC (12.2-14.7)
[2017-03-22 03:59] LABS: ALANINE AMINOTRANSFERASE 19 U/L (0-55); ALBUMIN 3.9 GM/DL (3.2-4.5); ALCOHOL 113 MG/DL (<10); ANION GAP 17 MMOL/L (5-14); ASPARTATE AMINO TRANSFERASE 19 U/L (5-34); BILIRUBIN,TOTAL 0.5 MG/DL (0.1-1.0); BLOOD UREA NITROGEN 9 MG/DL (7-18); BUN/CREATININE RATIO 10; CALCIUM 8.8 MG/DL (8.5-10.1); CARBON DIOXIDE 17 MMOL/L (21-32); CHLORIDE 106 MMOL/L (98-107); CREATININE SERUM 0.88 MG/DL (0.60-1.30); GFR ESTIMATED > 60; GLUCOSE 155 MG/DL (70-105); MAGNESIUM 2.1 MG/DL (1.8-2.4); SODIUM 140 MMOL/L (135-145); TOTAL PROTEIN 7.1 GM/DL (6.4-8.2)
[2017-03-22 04:11] LABS: BILIRUBIN,URINE NEGATIVE (NEGATIVE); KETONES,URINE NEGATIVE (NEGATIVE); LEUKOCYTE ESTERASE ,URINE NEGATIVE (NEGATIVE); NITRITE,URINE NEGATIVE (NEGATIVE); PH,URINE 6 (5-9); PROTEIN,URINE NEGATIVE (NEGATIVE); UROBILINOGEN,URINE NORMAL (NORMAL)
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
[2017-03-22 04:25] LABS: SQUAMOUS EPITHELIAL CELL,UR RARE /HPF
[2017-03-22 05:44] VITALS: BP 112/70
--- NOTE | 2017-03-22 06:00 | Diagnostic Imaging Report ---
CHEST PA/LAT (2 VIEW) Indication: Chest pain and headache. Comparison: None available. Findings: No focal pneumonic consolidation, pleural effusion or pneumothorax. Normal heart size and pulmonary vasculature. Impression: No acute cardiopulmonary process. Dictated by: Dictated on workstation # [id number]
--- NOTE | 2017-03-22 06:05 | Diagnostic Imaging Report ---
PROCEDURE: CT head without contrast. TECHNIQUE: Multiple contiguous axial images were obtained through the brain without the use of intravenous contrast. INDICATION: Headache. Comparison: None available. Findings: No hyperdense hemorrhage or space-occupying mass. No hydrocephalus or midline shift. The basilar cisterns are normal. Mild generalized atrophy without lobar predominance. [place]-white matter differentiation is well preserved. The mastoid air cells are clear. Paranasal sinuses are normal. No focal osseous abnormality of the calvarium. Impression: No acute intracranial process. Findings are in agreement with the preliminary report. Dictated by: Dictated on workstation # [id number]
== END 2017-03-22 05:44 | disposition home or self-care (01) ==
LOC: EDUNIT# 03:27 → ER 03:28
DX: F10.10 Alcohol abuse, uncomplicated (principal); F43.9 Reaction to severe stress, unspecified; R07.9 Chest pain, unspecified; R51 Headache; R42 Dizziness and giddiness; J44.9 Chronic obstructive pulmonary disease, unspecified; E78.00 Pure hypercholesterolemia, unspecified; K21.9 Gastro-esophageal reflux disease without esophagitis; F41.9 Anxiety disorder, unspecified; F32.9 Major depressive disorder, single episode, unspecified; F15.10 Other stimulant abuse, uncomplicated; B19.20 Unspecified viral hepatitis C without hepatic coma; F14.10 Cocaine abuse, uncomplicated; F17.210 Nicotine dependence, cigarettes, uncomplicated; Z86.718 Personal history of other venous thrombosis and embolism; Z87.820 Personal history of traumatic brain injury; Z91.5 Personal history of self-harm
CPT/HCPCS: 36415; 70450; 71020; 80053; 80306; 80320; 81000; 83735; 84484; 85025; 85610; 85730; 93005; 96365

== ENCOUNTER 2021-02-01 07:53 | Emergency (ER) | payer SELFPAY ==
[~2021-02-01] VITALS: Ht 172 cm; Wt 82.0 kg
[2021-02-01] MEDS ORDERED: NITROGLYCERIN 0.4 MG SL TABS BTL 25'S SL PRN (08:30)
[2021-02-01] MEDS ORDERED: ASPIRIN 81 MG CHEW (CHILDREN'S ASA) PO ONE (08:30)
[2021-02-01] MEDS ORDERED: RT-ALBUTEROL/IPRATROPIUM 3 ML (DUONEB) VIAL INH ONE (08:30)
--- NOTE | 2021-02-01 08:39 | ED Chest Pain ---
General Chief Complaint: Chest Pain Stated Complaint: SOB,COUGH,CP Source: patient Exam Limitations: no limitations History of Present Illness Date Seen by Provider: Feb 01, 2021 Time Seen by Provider: 08:08 Initial Comments Patient to the ER by private conveyance from home walking in with chief complaint of chest pain sharp stabbing under his left breast not reproducible to direct palpation or deep inspiration since yesterday evening. He has a history of COPD and smokes cigarettes as well as hypertension but does not follow with a doctor know if he has hypercholesterolemia or diabetes. No family history of heart disease prior to the age of 60. Occasionally smokes marijuana but denies any other recreational drugs. Denies alcohol use. Did not try anything for the pain. No personal history of coronary disease. Worse with exertion and walking. Shortness of air and wheezing. Does not have an inhaler. Allergies and Home Medications Allergies Coded Allergies: Penicillins (Unverified Allergy, Intermediate, hives, 09/18/12) codeine (Verified Allergy, Unknown, 01/16/17) PT STATES UVULA SWELLS Home Medications Omeprazole Magnesium 20 Mg Tablet.dr, 20-40 MG PO DAILY, (Reported) Patient Home Medication List Home Medication List Reviewed: Yes Review of Systems Review of Systems Constitutional: No chills, No diaphoresis, No fever EENTM: No Blurred Vision, No Double Vision Respiratory: Denies Cough; Shortness of Air, SOA With Exertion Cardiovascular: Denies Chest Pain, Denies Edema Gastrointestinal: Denies Constipated, Denies Diarrhea Genitourinary: Denies Burning, Denies Discharge Musculoskeletal: No back pain, No joint pain Skin: No pruritus, No rash Psychiatric/Neurological: Denies Headache, Denies Numbness All Other Systems Reviewed Negative Unless Noted: Yes Past Azcmiku-Hlvgyu-Zsuhgz Hx Patient Social History Tobacco Use?: No Use of E-Cig and/or Vaping dev: No Substance use?: No Immunizations Up To Date Tetanus Booster (TDap): More than 5yrs PED Vaccines UTD: No Seasonal Allergies Seasonal Allergies: No Past Medical History Surgeries: Yes Neurological, Orthopedic Respiratory: Yes COPD Cardiac: Yes (DVT RIGHT ARM 12/2013) Deep Vein Thrombosis, High Cholesterol Neurological: Yes Traumatic Brain Injury Genitourinary: No Gastrointestinal: Yes (HEPATITIS C 1994--NO TREATMENT. PT STATES "NOW I DON'T GOT IT" ) Gastroesophageal Reflux, Hepatitis Musculoskeletal: Yes (RIGHT KNEE ) Chronic Back Pain, Fractures Endocrine: No HEENT: No Cancer: No Psychosocial: Yes Anxiety, Suicide Attempts, Violent Behavior, Depression Integumentary: Yes (CHRONIC WOUND RIGHT ANKLE) Blood Disorders: No Physical Exam Vital Signs Vital Signs - First Documented 02/01/21 08:10 Temp 36.8 Pulse 81 Resp 18 B/P (MAP) 177/79 (111) Pulse Ox 97 O2 Delivery Room Air Capillary Refill : Height, Weight, BMI Height: 5'8.00" Weight: 180lbs. 7.0oz. 81.700813cj; 26.2 BMI Method:Stated General Appearance: No Apparent Distress, WD/WN HEENT: PERRL/EOMI; No Moist Mucous Membranes Neck: Full Range of Motion, Normal Inspection Respiratory: No Accessory Muscle Use, No Respiratory Distress; No Crackles; Wheezing (Right base worsen left) Cardiovascular: Regular Rate, Rhythm, Normal Peripheral Pulses Gastrointestinal: Normal Bowel Sounds, Non Tender, Soft Extremity: Normal Capillary Refill, Non Tender, No Calf Tenderness, No Pedal Edema Neurologic/Psychiatric: Alert, Oriented x3, No Motor/Sensory Deficits Skin: Normal Color, Warm/Dry Progress/Results/Core Measures Results/Orders Lab Results Laboratory Tests Test 02/01/21 08:12 02/01/21 08:25 Range/Units Influenza Type A (RT-PCR) Not Detected Not Detecte Influenza Type B (RT-PCR) Not Detected Not Detecte SARS-CoV-2 RNA (RT-PCR) Not Detected Not Detecte White Blood Count 5.1 4.3-11.0 10^3/uL Red Blood Count 4.97 4.30-5.52 10^6/uL Hemoglobin 16.8 13.3-17.7 g/dL Hematocrit 48 40-54 % Mean Corpuscular Volume 96 80-99 fL Mean Corpuscular Hemoglobin 34 25-34 pg Mean Corpuscular Hemoglobin Concent 35 32-36 g/dL Red Cell Distribution Width 12.2 10.0-14.5 % Platelet Count 121 L 130-400 10^3/uL Mean Platelet Volume 10.7 9.0-12.2 fL Immature Granulocyte % (Auto) 2 % Neutrophils (%) (Auto) 67 42-75 % Lymphocytes (%) (Auto) 21 12-44 % Monocytes (%) (Auto) 7 0-12 % Eosinophils (%) (Auto) 2 0-10 % Basophils (%) (Auto) 1 0-10 % Neutrophils # (Auto) 3.5 1.8-7.8 10^3/uL Lymphocytes # (Auto) 1.1 1.0-4.0 10^3/uL Monocytes # (Auto) 0.4 0.0-1.0 10^3/uL Eosinophils # (Auto) 0.1 0.0-0.3 10^3/uL Basophils # (Auto) 0.1 0.0-0.1 10^3/uL Immature Granulocyte # (Auto) 0.1 0.0-0.1 10^3/uL Percent Immature Platelet Fraction 5.1 0.0-7.6 % Prothrombin Time 13.2 12.2-14.7 SEC INR Comment 1.0 0.8-1.4 Activated Partial Thromboplast Time 25 24-35 SEC D-Dimer 1.49 H 0.00-0.49 UG/ML Sodium Level 145 135-145 MMOL/L Potassium Level 4.1 3.6-5.0 MMOL/L Chloride Level 108 H 98-107 MMOL/L Carbon Dioxide Level 19 L 21-32 MMOL/L Anion Gap 18 H 5-14 MMOL/L Blood Urea Nitrogen 9 7-18 MG/DL Creatinine 0.95 0.60-1.30 MG/DL Estimat Glomerular Filtration Rate > 60 BUN/Creatinine Ratio 9 Glucose Level 104 70-105 MG/DL Calcium Level 9.6 8.5-10.1 MG/DL Corrected Calcium 8.5-10.1 MG/DL Magnesium Level 2.0 1.6-2.4 MG/DL Total Bilirubin 1.2 H 0.1-1.0 MG/DL Aspartate Amino Transf (AST/SGOT) 19 5-34 U/L Alanine Aminotransferase (ALT/SGPT) 25 0-55 U/L Alkaline Phosphatase 77 40-136 U/L Myoglobin 76.6 10.0-92.0 NG/ML Troponin I < 0.028 <0.028 NG/ML Total Protein 7.8 6.4-8.2 GM/DL Albumin 4.7 H 3.2-4.5 GM/DL Smear Scan YES My Orders Orders - ALONDRA GASCA Continuous Ekg Monitoring (02/01/21 08:03) Ekg Tracing (02/01/21 08:03) Cbc With Automated Diff (02/01/21 08:27) Magnesium (02/01/21 08:27) Chest 1 View, Ap/Pa Only (02/01/21 08:27) Comprehensive Metabolic Panel (02/01/21 08:27) Myoglobin Serum (02/01/21 08:27) Protime With Inr (02/01/21 08:27) Partial Thromboplastin Time (02/01/21 08:27) O2 (02/01/21 08:27) Lipid Panel (02/02/21 06:00) Ed Iv/Invasive Line Start (02/01/21 08:27) Fibrin Degradation Products (02/01/21 08:27) Troponin I (02/01/21 08:27) Nitroglycerin 0.4 Mg Btl 25's (Nitrostat (02/01/21 08:30) Aspirin Chewable Tablet (Baby Aspirin Ch (02/01/21 08:30) Albuterol/Ipra Inhalation Soln (Duoneb I (02/01/21 08:30) Svn Small Volume Nebulizer (02/01/21 08:27) Covid 19 Inhouse Test (02/01/21 08:27) Influenza A And B By Pcr (02/01/21 08:27) Ct Angio Chest W (02/01/21 09:59) Iohexol Injection (Omnipaque 350 Mg/Ml 1 (02/01/21 10:45) Iohexol Injection (Omnipaque 350 Mg/Ml 1 (02/01/21 10:45) Received Contrast (Hold Metformin- Contr (02/01/21 10:45) Ns (Ivpb) (Sodium Chloride 0.9% Ivpb Bag (02/01/21 10:45) Albuterol/Ipra Inhalation Soln (Duoneb I (02/01/21 10:38) Medications Given in ED Current Medications Medications Dose Ordered Sig/[place] Route Start Time Stop Time Status Last Admin Dose Admin Albuterol/ Ipratropium 3 ml ONCE ONCE INH 02/01/21 08:30 02/01/21 08:35 DC 02/01/21 10:54 3 ML Aspirin 324 mg ONCE ONCE PO 02/01/21 08:30 02/01/21 08:35 DC 02/01/21 08:58 324 MG Iohexol 75 ml ONCE ONCE IV 02/01/21 10:45 02/01/21 10:46 DC 02/01/21 10:47 73 ML Nitroglycerin 0.4 mg UD PRN SL 02/01/21 08:30 02/01/21 08:58 0.4 MG Sodium Chloride 100 ml ONCE ONCE IV 02/01/21 10:45 02/01/21 10:46 DC 02/01/21 10:47 80 ML Vital Signs/I&O 02/01/21 02/01/21 02/01/21 08:10 08:10 10:56 Temp 36.8 Pulse 81 Resp 18 B/P (MAP) 177/79 (111) Pulse Ox 97 98 O2 Delivery Room Air Progress Progress Note : Time: 08:25 Progress Note Aspirin, nitroglycerin. DuoNeb. We will do a Covid swab although he is not having any fevers or body aches nausea vomiting or cough. Possibility of pneumonia, COPD exacerbation, acute coronary syndrome. Initial ECG Impression Date: Feb 01, 2021 Initial ECG Impression Time: 08:13 Initial ECG Rate: 73 Initial ECG Rhythm: Normal Sinus Initial ECG Intervals: Normal Initial ECG Impression: Normal, Nonspecific Changes Comment Normal sinus rhythm without clinically relevant ST elevation or depression. Diagnostic Imaging Diagonstic Imaging: Xray Plain Films/CT/US/NM/MRI: chest Comments [facility] [place], [place] NAME: SHERIDAN CARD [facility] REC#: [id number] PT STATUS: REG ER : 1965 PHYSICIAN: ALONDRA GASCA MD ADMIT DATE: 02/01/21/ER Draft Date of Exam:02/01/21 CHEST 1 VIEW, AP/PA ONLY INDICATION: Chest pain, diaphoresis. COMPARISON: 03/22/2017. FINDINGS: Single view of the chest demonstrates clear lungs bilaterally. The heart is normal. There is no pneumothorax but osseous structures normal. IMPRESSION: Negative chest. Dictated on workstation # [id number] Dict: 02/01/21 1016 Trans: 02/01/21 1027 [id number] Interpreted by: GAYLE ARGUETA Electronically signed by: Reviewed: Reviewed by Me Diagonstic Imaging: CT Plain Films/CT/US/NM/MRI: chest Comments [facility] [place], [place] NAME: SHERIDAN CARD [facility] REC#: [id number] PT STATUS: REG ER : 1965 PHYSICIAN: ALONDRA GASCA MD ADMIT DATE: 02/01/21/ER Draft Date of Exam:02/01/21 CT ANGIO CHEST W EXAMINATION: CT angiography of the chest. TECHNIQUE: Contrast enhanced thin section helical images were obtained through the chest with intravenous contrast timed for the optimal opacification of the arterial structures per CTA protocol. Post-processing, reconstructions and interpretation of angiographic images of the vessels was performed. 3D MIP reconstructions were performed and reviewed. All CT scans use one or more of the following dose optimizing techniques: Automated exposure control, MA and/or KvP adjustment based on a patient size and exam type, or iterative reconstruction. HISTORY: Chest pain. COMPARISON: None available. FINDINGS: There is no pulmonary embolism. There is no edema or pneumonia. No pleural effusion. No pneumothorax. No suspicious nodules. There is no axillary or supraclavicular lymphadenopathy. There is no mediastinal lymphadenopathy. Heart size is normal. There are no coronary artery calcifications. No pericardial effusion. Aorta is normal in caliber. Limited views of the upper abdomen are unremarkable. There are no suspicious osseous lesions. IMPRESSION: 1. No pulmonary embolism, clear lungs. Dictated on workstation # [id number] Dict: 02/01/21 1054 Trans: 02/01/21 1058 [id number] Interpreted by: MARIN MCLAIN MD Electronically signed by: Reviewed: Reviewed by Me Consults : Consulting Physician: SUNNI WOLFF JR, MD Consults Notes Discussed the case with Dr. Wolff and he thinks after a 12-hour period a negative troponin is sufficient that the patient is pain-free. We will have him follow-up in the next week with Dr. Wolff in the clinic. Departure Impression Primary Impression: Chest pain Qualified Codes: R07.9 - Chest pain, unspecified Disposition: HOME, SELF-CARE Condition: Stable Departure-Patient Inst. Decision time for Depature: 12:06 Referrals: [facility] (PCP/Family) Primary Care Physician SUNNI WOLFF JR, MD Patient Instructions: Chest Pain (DC) Add. Discharge Instructions: Aspirin 81 mg daily until you see the brewing technician. Avoid NSAIDs such as ibuprofen until you see the brewing technician. Return to the ER promptly for intractable chest pain. Follow-up February 06 at 1:00 in the afternoon. All discharge instructions reviewed with patient and/or family. Voiced understanding. Work/School Note: Work Release Form Date Seen in the Emergency Department: Feb 01, 2021 Return to Work: Feb 02, 2021 Restrictions: No Restrictions Copy Copies To 1: SUNNI WOLFF JR, MD WELLER, TITUS J Feb 01, 2021 08:39
[2021-02-01 08:54] LABS: MEAN CORPUSCULAR VOLUME 96 fL (80-99); WHITE BLOOD COUNT 5.1 10^3/uL (4.3-11.0)
[2021-02-01 08:55] LABS: ALBUMIN 4.7 GM/DL (3.2-4.5); CHLORIDE 108 MMOL/L (98-107); POTASSIUM 4.1 MMOL/L (3.6-5.0); SODIUM 145 MMOL/L (135-145)
[2021-02-01 08:56] LABS: BASOPHILS # (AUTO) 0.1 10^3/uL (0.0-0.1); BASOPHILS % (AUTO) 1 % (0-10); CALCIUM 9.6 MG/DL (8.5-10.1); EOSINOPHILS # (AUTO) 0.1 10^3/uL (0.0-0.3); EOSINOPHILS % (AUTO) 2 % (0-10); HEMATOCRIT 48 % (40-54); HEMOGLOBIN 16.8 g/dL (13.3-17.7); LYMPHOCYTES # (AUTO) 1.1 10^3/uL (1.0-4.0); LYMPHOCYTES % (AUTO) 21 % (12-44); MEAN CORPUSCULAR HEMOGLOBIN 34 pg (25-34); MEAN CORPUSCULAR HGB CONC 35 g/dL (32-36); MEAN PLATELET VOLUME 10.7 fL (9.0-12.2); MONOCYTES # (AUTO) 0.4 10^3/uL (0.0-1.0); MONOCYTES % (AUTO) 7 % (0-12); NEUTROPHILS # (AUTO) 3.5 10^3/uL (1.8-7.8); NEUTROPHILS % (AUTO) 67 % (42-75)
[2021-02-01 08:57] LABS: GLUCOSE 104 MG/DL (70-105); TOTAL PROTEIN 7.8 GM/DL (6.4-8.2)
[2021-02-01 08:58] LABS: CARBON DIOXIDE 19 MMOL/L (21-32)
[2021-02-01 08:59] LABS: BILIRUBIN,TOTAL 1.2 MG/DL (0.1-1.0)
[2021-02-01 09:00] LABS: ALKALINE PHOSPHATASE 77 U/L (40-136)
[2021-02-01 09:01] LABS: CREATININE SERUM 0.95 MG/DL (0.60-1.30); GFR ESTIMATED > 60
[2021-02-01 09:02] LABS: BUN/CREATININE RATIO 9; PROTHROMBIN TIME PATIENT 13.2 SEC (12.2-14.7)
[2021-02-01 09:04] LABS: ALANINE AMINOTRANSFERASE 25 U/L (0-55)
[2021-02-01 09:09] LABS: PLATELET COUNT 121 10^3/uL (130-400); SMEAR SCAN COMMENT YES
--- NOTE | 2021-02-01 10:27 | Diagnostic Imaging Report ---
INDICATION: Chest pain, diaphoresis. COMPARISON: 03/22/2017. FINDINGS: Single view of the chest demonstrates clear lungs bilaterally. The heart is normal. There is no pneumothorax but osseous structures normal. IMPRESSION: Negative chest. Dictated by: Dictated on workstation # [id number]
[2021-02-01] MEDS ORDERED: RT-ALBUTEROL/IPRATROPIUM 3 ML (DUONEB) VIAL ONE (10:38)
[2021-02-01] MEDS ORDERED: HOLD METFORMIN - RECEIVED CONTRAST 20 ML VIAL IV SCH (10:45)
[2021-02-01] MEDS ORDERED: NS 100 ML (IVPB) BAG IV ONE (10:45)
[2021-02-01] MEDS ORDERED: IOHEXOL 350 MG/ML 100 ML (OMNIPAQUE 350) VIAL IV ONE ×2 (10:45)
--- NOTE | 2021-02-01 10:58 | Diagnostic Imaging Report ---
EXAMINATION: CT angiography of the chest. TECHNIQUE: Contrast enhanced thin section helical images were obtained through the chest with intravenous contrast timed for the optimal opacification of the arterial structures per CTA protocol. Post-processing, reconstructions and interpretation of angiographic images of the vessels was performed. 3D MIP reconstructions were performed and reviewed. All CT scans use one or more of the following dose optimizing techniques: Automated exposure control, MA and/or KvP adjustment based on a patient size and exam type, or iterative reconstruction. HISTORY: Chest pain. COMPARISON: None available. FINDINGS: There is no pulmonary embolism. There is no edema or pneumonia. No pleural effusion. No pneumothorax. No suspicious nodules. There is no axillary or supraclavicular lymphadenopathy. There is no mediastinal lymphadenopathy. Heart size is normal. There are no coronary artery calcifications. No pericardial effusion. Aorta is normal in caliber. Limited views of the upper abdomen are unremarkable. There are no suspicious osseous lesions. IMPRESSION: 1. No pulmonary embolism, clear lungs. Dictated by: Dictated on workstation # [id number]
[2021-02-01 12:16] VITALS: BP 152/79
== END 2021-02-01 12:15 | disposition home or self-care (01) ==
LOC: EDUNIT# 07:53 → ER 07:54
DX: R07.9 Chest pain, unspecified (principal); R06.2 Wheezing; I10 Essential (primary) hypertension; J44.9 Chronic obstructive pulmonary disease, unspecified; K21.9 Gastro-esophageal reflux disease without esophagitis; F17.210 Nicotine dependence, cigarettes, uncomplicated; Z79.899 Other long term (current) drug therapy; Z20.822 Contact with and (suspected) exposure to COVID-19
CPT/HCPCS: 36415; 71045; 71275; 80053; 83735; 83874; 84484; 85025; 85379; 85610; 85730; 87636; 93005; 94640

== ENCOUNTER 2022-04-21 03:25 | Emergency (ER) | payer SELFPAY ==
[2022-04-21] MEDS ORDERED: PANTOPRAZOLE 40 MG (PROTONIX) VIAL IV ONE (03:45)
[2022-04-21] MEDS ORDERED: ONDANSETRON 4 MG/2 ML (SDV) Z0FRAN IVP ONE (03:45)
[2022-04-21 03:53] LABS: BASOPHILS # (AUTO) 0.1 10^3/uL (0.0-0.1); BASOPHILS % (AUTO) 1 % (0-10); EOSINOPHILS # (AUTO) 0.2 10^3/uL (0.0-0.3); EOSINOPHILS % (AUTO) 2 % (0-10); HEMATOCRIT 42 % (40-54); LYMPHOCYTES # (AUTO) 1.2 10^3/uL (1.0-4.0); LYMPHOCYTES % (AUTO) 16 % (12-44); MEAN CORPUSCULAR HEMOGLOBIN 31 pg (25-34); MEAN CORPUSCULAR HGB CONC 36 g/dL (32-36); MEAN CORPUSCULAR VOLUME 86 fL (80-99); MONOCYTES # (AUTO) 0.6 10^3/uL (0.0-1.0); MONOCYTES % (AUTO) 9 % (0-12); NEUTROPHILS # (AUTO) 5.2 10^3/uL (1.8-7.8); NEUTROPHILS % (AUTO) 72 % (42-75); PLATELET COUNT 272 10^3/uL (130-400); WHITE BLOOD COUNT 7.3 10^3/uL (4.3-11.0)
[2022-04-21 04:07] LABS: OCCULT BLOOD,GASTRIC FLUID POSITIVE (NEGATIVE)
[2022-04-21 04:16] LABS: ALBUMIN 4.4 GM/DL (3.2-4.5); CHLORIDE 102 MMOL/L (98-107); POTASSIUM 3.4 MMOL/L (3.6-5.0); SODIUM 139 MMOL/L (135-145)
[2022-04-21 04:17] LABS: CALCIUM 10.4 MG/DL (8.5-10.1)
[2022-04-21 04:18] LABS: GLUCOSE 126 MG/DL (70-105); TOTAL PROTEIN 7.3 GM/DL (6.4-8.2)
[2022-04-21 04:19] LABS: CARBON DIOXIDE 24 MMOL/L (21-32)
[2022-04-21 04:22] LABS: ALKALINE PHOSPHATASE 61 U/L (40-136); CREATININE SERUM 0.92 MG/DL (0.60-1.30); GFR ESTIMATED 98
[2022-04-21 04:23] LABS: BUN/CREATININE RATIO 13
[2022-04-21 04:25] LABS: ALANINE AMINOTRANSFERASE 24 U/L (0-55); LIPASE 23 U/L (8-78)
--- NOTE | 2022-04-21 05:53 | ED Abdominal Pain ---
General Chief Complaint: Abdominal/GI Problems Stated Complaint: VOMITING Nursing Triage Note: TO ED VIA [facility] FROM LOCAL HOTEL. PT STATES HE HAS BEEN VOMITING SINCE YESTERDAY AT 1500. Source of Information: Patient Exam Limitations: No Limitations (ZANDRA CUNNINGHAM MD) History of Present Illness Date Seen by Provider: Apr 21, 2022 Time Seen by Provider: 03:25 Initial Comments This 56-year-old man presents to the emergency room via EMS from a hotel where he has been staying with complaints of vomiting blood. He had been vomiting since yesterday around 1500. He states his emesis was a large volume and looked like "liver". He had not been eating anything to produce this volume so he assumed it was blood. Vital signs were stable for EMS. Patient has been living in [place] and is back in the [facility] visiting. He used to live here. He has felt lightheaded and complains of left upper quadrant abdominal pain. He denies diarrhea. He is afebrile but has had chills and sweats. He does admit to drinking alcohol yesterday which he does on occasion. He also has history of IV drug use and admits to recent methamphetamine usage. It has been a few months since he last used cocaine. He has history of acid reflux for which he takes lnxm-cgx-shxkasp antiacid medications. He denies ever having endoscopy. He denies ever having hematemesis in the past. He admits to drinking alcohol but is not a daily consumer. He does have history of GERD for which he takes lqbt-ohs-zvpeptv antiacid medications. (ZANDRA CUNNINGHAM MD) Allergies and Home Medications Allergies Coded Allergies: Penicillins (Unverified Allergy, Intermediate, hives, 09/18/12) codeine (Verified Allergy, Unknown, 01/16/17) PT STATES EDEL COLLAZO Patient Home Medication List Home Medication List Reviewed: Yes (ZANDRA CUNNINGHAM MD) Omeprazole Magnesium (Prilosec Otc) 20 Mg Tablet.dr, 20-40 MG PO DAILY, (Reported) Entered as Reported by: EMPERATRIZ TSANG on 01/16/17 2707 Review of Systems Review of Systems Constitutional: no symptoms reported EENTM: No Symptoms Reported Respiratory: No Symptoms Reported Cardiovascular: No Symptoms Reported Gastrointestinal: See HPI Genitourinary: No Symptoms Reported Musculoskeletal: no symptoms reported Skin: no symptoms reported Psychiatric/Neurological: See HPI Endocrine: No Symptoms Reported (ZANDRA CUNNINGHAM MD) Past Thdbmwe-Bvyzdo-Tcsbvt Hx Patient Social History Tobacco Use?: Yes Tobacco type used: Cigarettes Smoking Status: Current Everyday Smoker Substance use?: Yes Substance type: Methamphetamine, Other (Cocaine) Additional substance use comme: STATES EX IV DRUG USE Alcohol Use?: Yes Alcohol Frequency: Once in a while (ZANDRA CUNNINGHAM MD) Immunizations Up To Date Tetanus Booster (TDap): More than 5yrs PED Vaccines UTD: No Influenza Vaccine Up-to-Date: No; Not Current (ZANDRA CUNNINGHAM MD) Seasonal Allergies Seasonal Allergies: No (ZANDRA CUNNINGHAM MD) Past Medical History Surgeries: Yes Neurological, Orthopedic Respiratory: Yes COPD Cardiac: Yes (DVT RIGHT ARM 12/2013) Deep Vein Thrombosis, High Cholesterol Neurological: Yes Traumatic Brain Injury Genitourinary: No Gastrointestinal: Yes (HEPATITIS C 1994--NO TREATMENT. PT STATES "NOW I DON'T GOT IT" ) Gastroesophageal Reflux, Hepatitis Musculoskeletal: Yes (RIGHT KNEE ) Chronic Back Pain, Fractures Endocrine: No HEENT: No Cancer: No Psychosocial: Yes Anxiety, Suicide Attempts, Violent Behavior, Depression Integumentary: Yes (CHRONIC WOUND RIGHT ANKLE) Blood Disorders: No (ZANDRA CUNNINGHAM MD) Physical Exam Vital Signs Vital Signs - First Documented 04/21/22 03:31 Temp 36.7 Pulse 80 Resp 16 B/P (MAP) 174/120 (138) O2 Delivery Room Air (URIEL RUIZ MD) Vital Signs Capillary Refill : Less Than 3 Seconds (ZANDRA CUNNINGHAM MD) Height/Weight/BMI Height: 5'8.00" Weight: 180lbs. 7.0oz. 81.461118ol; 27.00 BMI Method:Stated General Appearance: WD/WN, mild distress, thin HEENT: normal ENT inspection Neck: full range of motion Respiratory: lungs clear, normal breath sounds, no respiratory distress Cardiovascular: regular rate, rhythm, no edema, no murmur Gastrointestinal: normal bowel sounds, soft; No distended; tenderness (Left upp er quadrant) Extremities: normal inspection, no pedal edema Neurologic/Psychiatric: contract administrator II-XII nml as tested, no motor/sensory deficits, alert, normal mood/affect, oriented x 3 Skin: normal color, warm/dry (ZANDRA CUNNINGHAM MD) Progress/Results/Core Measures Results/Orders Lab Results Laboratory Tests Test 04/21/22 03:45 04/21/22 03:55 04/21/22 07:15 Range/Units White Blood Count 7.3 4.3-11.0 10^3/uL Red Blood Count 4.85 4.30-5.52 10^6/uL Hemoglobin 15.0 13.3-17.7 g/dL Hematocrit 42 40-54 % Mean Corpuscular Volume 86 80-99 fL Mean Corpuscular Hemoglobin 31 25-34 pg Mean Corpuscular Hemoglobin Concent 36 32-36 g/dL Red Cell Distribution Width 13.1 10.0-14.5 % Platelet Count 272 130-400 10^3/uL Mean Platelet Volume 11.0 9.0-12.2 fL Immature Granulocyte % (Auto) 0 % Neutrophils (%) (Auto) 72 42-75 % Lymphocytes (%) (Auto) 16 12-44 % Monocytes (%) (Auto) 9 0-12 % Eosinophils (%) (Auto) 2 0-10 % Basophils (%) (Auto) 1 0-10 % Neutrophils # (Auto) 5.2 1.8-7.8 10^3/uL Lymphocytes # (Auto) 1.2 1.0-4.0 10^3/uL Monocytes # (Auto) 0.6 0.0-1.0 10^3/uL Eosinophils # (Auto) 0.2 0.0-0.3 10^3/uL Basophils # (Auto) 0.1 0.0-0.1 10^3/uL Immature Granulocyte # (Auto) 0.0 0.0-0.1 10^3/uL Prothrombin Time 14.0 12.2-14.7 SEC INR Comment 1.0 0.8-1.4 Activated Partial Thromboplast Time 31 24-35 SEC Sodium Level 139 135-145 MMOL/L Potassium Level 3.4 L 3.6-5.0 MMOL/L Chloride Level 102 98-107 MMOL/L Carbon Dioxide Level 24 21-32 MMOL/L Anion Gap 13 5-14 MMOL/L Blood Urea Nitrogen 12 7-18 MG/DL Creatinine 0.92 0.60-1.30 MG/DL Estimat Glomerular Filtration Rate 98 BUN/Creatinine Ratio 13 Glucose Level 126 H 70-105 MG/DL Calcium Level 10.4 H 8.5-10.1 MG/DL Corrected Calcium 10.1 8.5-10.1 MG/DL Total Bilirubin 4.0 H 0.1-1.0 MG/DL Aspartate Amino Transf (AST/SGOT) 22 5-34 U/L Alanine Aminotransferase (ALT/SGPT) 24 0-55 U/L Alkaline Phosphatase 61 40-136 U/L Total Protein 7.3 6.4-8.2 GM/DL Albumin 4.4 3.2-4.5 GM/DL Lipase 23 8-78 U/L Serum Alcohol < 10 <10 MG/DL Gastric Fluid Occult Blood POSITIVE H NEGATIVE Urine Opiates Screen NEGATIVE NEGATIVE Urine Oxycodone Screen NEGATIVE NEGATIVE Urine Methadone Screen NEGATIVE NEGATIVE Urine Propoxyphene Screen NEGATIVE NEGATIVE Urine Barbiturates Screen NEGATIVE NEGATIVE Ur Tricyclic Antidepressants Screen NEGATIVE NEGATIVE Urine Phencyclidine Screen NEGATIVE NEGATIVE Urine Amphetamines Screen NEGATIVE NEGATIVE Urine Methamphetamines Screen POSITIVE H NEGATIVE Urine Benzodiazepines Screen NEGATIVE NEGATIVE Urine Cocaine Screen NEGATIVE NEGATIVE Urine Cannabinoids Screen NEGATIVE NEGATIVE (URIEL RUIZ MD) My Orders Orders - URIEL RUIZ MD Lidocaine 2% Viscous 15 Ml (Xylocaine Vi (04/21/22 07:00) Sucralfate Tablet (Carafate Tablet) (04/21/22 07:00) Antacid Suspension (Mylanta Suspension (04/21/22 07:00) (URIEL RUIZ MD) Medications Given in ED Current Medications Medications Dose Ordered Sig/[place] Route Start Time Stop Time Status Last Admin Dose Admin Al Hydrox/Mg Hydrox/Simethicone 30 ml ONCE ONCE PO 04/21/22 07:00 04/21/22 07:01 DC 04/21/22 07:09 30 ML Iohexol 100 ml ONCE ONCE IV 04/21/22 06:00 04/21/22 06:01 DC 04/21/22 06:17 80 ML Lidocaine HCl 5 ml ONCE ONCE PO 04/21/22 07:00 04/21/22 07:01 DC 04/21/22 07:09 5 ML Ondansetron HCl 8 mg ONCE ONCE IVP 04/21/22 03:45 04/21/22 03:46 DC 04/21/22 03:56 8 MG Pantoprazole 80 mg ONCE ONCE IV 04/21/22 03:45 04/21/22 03:46 DC 04/21/22 03:56 80 MG Sodium Chloride 100 ml ONCE ONCE IV 04/21/22 06:00 04/21/22 06:01 DC 04/21/22 06:18 100 ML Sucralfate 1 gm ONCE ONCE PO 04/21/22 07:00 04/21/22 07:01 DC 04/21/22 07:09 1 GM (URIEL RUIZ MD) Vital Signs/I&O 04/21/22 03:31 Temp 36.7 Pulse 80 Resp 16 B/P (MAP) 174/120 (138) O2 Delivery Room Air (URIEL RUIZ MD) Blood Pressure Mean: 138 Progress Progress Note : Time: 06:04 Progress Note Patient was interviewed and examined upon arrival. He was treated with Zofran and Protonix. He did not tolerate a trial of water well. Drinking water caused immediate pain and return of nausea. CT scan is being obtained to evaluate his pain further. Care of this patient is being transitioned to Dr. Ruiz with CT report pending. (ZANDRA CUNNINGHAM MD) Progress Note #1: Time: 06:55 Progress Note Patient reassessed after CT results show no acute abnormality other than some fatty lover disease. Patient resting comfortably on right side. He states the pain "feels like fire" in his abdomen and is "almost unbearable". HR 92; BP good. Abdomen examined - soft +BS. no distension, nonvoluntary guarding. No direct tenderness in the LUQ or epigastrum. Patient states he vomited "half a trashcan full" of blood since 0330 yesterday. no vomiting in the ED. He cannot recall his last BM - but denies any recent black or bloody stools. States he has never had EGD. no etoh. He states he takes omeprazole. Is down in [place] visiting family from [place], [place]. Will provide GI Cocktail to see if we can alleviate his "burning". CBC is reassuring - Hgb is normal. Anticipate discharge to home with strict return precautions and will add carafate to his medications. Strongly encouraged him to follow up with PCP for scheduling of EGD. Progress Note #2: Time: : Progress Note Patient feels better at discharge. Will send home with dicyclomine and carafate. return precautions discussed and referral to Dr Strauss for EGD. (URIEL RUIZ MD) Diagnostic Imaging Diagonstic Imaging: CT Comments [facility] [place] NAME: SHREIDAN CARD [facility] REC#: [id number] PT STATUS: REG ER : 1965 PHYSICIAN: ZANDRA CUNNINGHAM MD ADMIT DATE: 04/21/22/ER Draft Date of Exam:04/21/22 CT ABDOMEN/PELVIS W PROCEDURE: CT abdomen and pelvis with contrast. TECHNIQUE: Multiple contiguous axial images were obtained through the abdomen and pelvis after administration of intravenous contrast. Auto Exposure Controls were utilized during the CT exam to meet ALARA standards for radiation dose reduction. All CT scans use one or more of the following dose optimizing techniques: automated exposure control, MA and/or KvP adjustment based on patient size and exam type or iterative reconstruction. Indication: Upper abdominal pain, hematemesis. Comparison: None. Discussion: The lung bases are well-aerated. Normal heart size. No pleural or pericardial fluid. Fatty infiltration of the liver is noted. No liver mass. The gallbladder is contracted. The pancreas, stomach, spleen, and adrenal glands are unremarkable. No renal stone or hydronephrosis. The aorta is normal in caliber. The appendix is normal. The urinary bladder and prostate gland are unremarkable. No obstruction, pneumatosis, pneumoperitoneum. No constipation. No diverticular disease. No ascites or adenopathy. No osseous abnormality identified. Impression: 1. Fatty infiltration of the liver is noted. No acute abnormality within the abdomen or pelvis otherwise. Dictated on workstation # [id number] Dict: 04/21/22627 Trans: 04/21/22 0639 LIZZETH [id number] Interpreted by: SUNNI KUMAR MD Electronically signed by: (URIEL RUIZ MD) Counseling-Symptomatic: 3-10 Minutes Follow-up with PCP to: Discuss Further Options (URIEL RUIZ MD) Departure Impression Primary Impression: Hematemesis Qualified Codes: K92.0 - Hematemesis Additional Impressions: Left upper quadrant pain Hyperbilirubinemia Disposition: 01 HOME, SELF-CARE Condition: Improved Departure-Patient Inst. Decision time for Depature: 08:04 (URIEL RUIZ MD) Referrals: [facility] (PCP/Family) Primary Care Physician NEHA STRAUSS DO Patient Instructions: Acid Reflux and GERD in Adults (DC) Add. Discharge Instructions: Take your Omeprazole as directed every day. I have also sent a prescription for CARAFATE to your pharmacy. Take this 4 times a day 30minutes before eating for pain. Do not take Ibuprofen on an empty stomach. I have also sent some DICYCLOMINE pain medication to the pharmacy at [facility]. This can be taken 30 minutes before meals up to 4 times a day as well. You should stop smoking. Smoking causes worsening Ulcers. You need to follow up with a general surgeon to get a scope done of your stomach. I have attached information for Dr Strauss here in [place] who does this. If you have worsening pain with vomiting blood, feel light headed or pass out, you need to come back to the Emergency Department for re-evaluation. Please call for a follow up appointment with either your doctor in [place] or [facility] here in [place]. Scripts Dicyclomine HCl (Dicyclomine HCl) 20 Mg Tablet 20 MG PO QIDACHS PRN for PAIN-MODERATE (5-7), #30 TAB Prov: URIEL RUIZ MD 04/21/22 Sucralfate (Carafate) 1 Gram Tablet 1 GM PO QIDACHS, #60 TAB Prov: URIEL RUIZ MD 04/21/22 Work/School Note: Work Release Form Date Seen in the Emergency Department: Apr 21, 2022 Return to Work: Apr 23, 2022 Copy Copies To 1: VIMAL FRANCO DO Copies To 2: NEHA STRAUSS DO ZANDRA CUNNINGHAM MD Apr 21, 2022 05:53 URIEL RUIZ MD Apr 21, 2022 06:49
[2022-04-21] MEDS ORDERED: IOHEXOL 350 MG/ML 100 ML (OMNIPAQUE 350) VIAL IV ONE (06:00)
[2022-04-21] MEDS ORDERED: HOLD METFORMIN - RECEIVED CONTRAST 20 ML VIAL IV SCH (06:00)
[2022-04-21] MEDS ORDERED: NS 100 ML (IVPB) BAG IV ONE (06:00)
--- NOTE | 2022-04-21 06:40 | Diagnostic Imaging Report ---
PROCEDURE: CT abdomen and pelvis with contrast. TECHNIQUE: Multiple contiguous axial images were obtained through the abdomen and pelvis after administration of intravenous contrast. Auto Exposure Controls were utilized during the CT exam to meet ALARA standards for radiation dose reduction. All CT scans use one or more of the following dose optimizing techniques: automated exposure control, MA and/or KvP adjustment based on patient size and exam type or iterative reconstruction. Indication: Upper abdominal pain, hematemesis. Comparison: None. Discussion: The lung bases are well-aerated. Normal heart size. No pleural or pericardial fluid. Fatty infiltration of the liver is noted. No liver mass. The gallbladder is contracted. The pancreas, stomach, spleen, and adrenal glands are unremarkable. No renal stone or hydronephrosis. The aorta is normal in caliber. The appendix is normal. The urinary bladder and prostate gland are unremarkable. No obstruction, pneumatosis, pneumoperitoneum. No constipation. No diverticular disease. No ascites or adenopathy. No osseous abnormality identified. Impression: 1. Fatty infiltration of the liver is noted. No acute abnormality within the abdomen or pelvis otherwise. Dictated by: Dictated on workstation # [id number]
[2022-04-21] MEDS ORDERED: SUCRALFATE 1 GM (CARAFATE) TAB PO ONE (07:00)
[2022-04-21] MEDS ORDERED: LIDOCAINE 2% VISCOUS 15 ML UDC PO ONE (07:00)
[2022-04-21] MEDS ORDERED: ANTACID SUSP 30 ML UDC (MYLANTA) PO ONE (07:00)
[2022-04-21 07:47] LABS: AMPHETAMINE SCREEN, URINE NEGATIVE (NEGATIVE); BARBITURATE SCREEN URINE NEGATIVE (NEGATIVE); BENZODIAZEPINES SCREEN URINE NEGATIVE (NEGATIVE); CANNABINOID SCREEN, URINE NEGATIVE (NEGATIVE); COCAINE SCREEN URINE NEGATIVE (NEGATIVE); METHADONE STAT NEGATIVE (NEGATIVE); OPIATE SCREEN URINE NEGATIVE (NEGATIVE); OXYCODONE STAT NEGATIVE (NEGATIVE); PROPOXYPHENE STAT NEGATIVE (NEGATIVE); TRICYCLIC ANTIDEPRESSANTS SCRE NEGATIVE (NEGATIVE)
[2022-04-21] MEDS ORDERED: SUCR1TAB36 PO (08:22)
[2022-04-21] MEDS ORDERED: DICY20TA PO (08:22)
[2022-04-21 08:27] VITALS: BP 141/91
== END 2022-04-21 08:27 | disposition home or self-care (01) ==
LOC: ER 03:25 → EDUNIT# 03:25 → ER 08:27
DX: K92.0 Hematemesis (principal); E80.6 Other disorders of bilirubin metabolism; K21.9 Gastro-esophageal reflux disease without esophagitis; F17.210 Nicotine dependence, cigarettes, uncomplicated; Z28.310 Unvaccinated for COVID-19; Z79.899 Other long term (current) drug therapy
CPT/HCPCS: 74177; 80053; 80306; 82271; 83690; 85025; 85610; 85730; 99284; G0480; 36415; 80320